=== PATIENT | male | born 1995 | race Caucasian/White ===

== ENCOUNTER → 2019-05-14 16:33 | Outpatient (CLI) | payer BC, SELFPAY ==
--- NOTE | 2019-05-14 | SEP_PTH ---
PATIENT: ANITA ENGLAND LOC: [facility] U#:[id number] AGE/SX: 30/M ROOM: RE05/14/[address]: Dr. Aman Merino MD : 1995 BED: DIS: SPEC #: [id number] RECD: 05/14/19 15:58 STATUS: KELLEE SHAN #: [id number] CARLITOS: 05/14/19 00:[address]: Aman Merino DEPT: SURGICAL PATHOLOGY RECD BY: Everett Lao ENTERED: 05/15/19 09:32 SP TYPE: SEPTUM OTHR DR: JULIO Tissues: Nasal septum, NOS Procedures: Decalcification bone/plaque Surgery Specimen Level III HEADER OPERATION: Septoplasty and turbinate resection PRE-OP DIAGNOSIS: Nasal congestion, hypertrophy of nasal turbinates, deviated nasal septum TISSUE SUBMITTED: Septum MICROSCOPIC DIAGNOSIS Nasal septum, septoplasty: Fragments of hyaline cartilage and bone with mild reactive change (clinically deviated septum). AM:jony 05/21/19 MICROSCOPIC DESCRIPTION Slides are reviewed. GROSS DESCRIPTION Received is one container labeled with the patient's name and not further designated. The specimen consists of multiple irregular fragments of cartilage and bone that in aggregate measure 3 x 3 x 1 cm. Front End Wheel Loader Operator sections are submitted in one cassette after decalcification. / SJ:jony 05/15/19 TC:5 CPT: 77219, 53941
== END ==
PROVIDERS: Referring Provider Otolaryngology; Visit Provider Otolaryngology
DX: J34.3 Hypertrophy of nasal turbinates (principal); J34.2 Deviated nasal septum; R09.81 Nasal congestion
CPT/HCPCS: 88304; 88311